=== PATIENT | female | born 1935 | race Caucasian/White ===

== ENCOUNTER → 2017-08-25 | Outpatient (CLI) | payer MEDICARE, OTHER ==
[~2017-08-25] MED LIST: HYDMOR2 PO; RXHYDMOR2 PO
== END | disposition home or self-care (01) ==
LOC: PLD 11:50 → LAB SHORT 11:50
DX: D48.5 Neoplasm of uncertain behavior of skin (principal)
CPT/HCPCS: 88305

== ENCOUNTER 2022-01-13 09:42 | Inpatient (IN) | payer OTHER, MEDICARE ==
[~2022-01-13] VITALS: Ht 157.5 cm; Wt 51.5 kg
[~2022-01-13 09:42] MED LIST changes: +ASPI81CH PO; +Crestor40 MG PO; +ELIQUIS2.5 MG PO; +FAMO20 PO; +FUROSEMIDE20 MG PO; +Isosorbide Mono30 MG PO; +METO25 PO; +MULTI-VITAMIN1 EAC2 PO; +Norco 5-325 Ta1 EACH PO; +POTCHL20ER PO; +RANO500T PO; +Vitamin D2000 UNIT PO
[2022-01-13 10:11] LABS: BASOPHILS ABSOLUTE AUTO 0.02 K/mm3 (0.00-0.23); BASOPHILS PERCENT AUTO 0 % (0-2); EOSINOPHILS ABSOLUTE AUTO 0.18 K/mm3 (0.00-0.68); EOSINOPHILS PERCENT AUTO 2 % (0-6); Hematocrit 37.2 % (33.0-51.0); IMMATURE GRAN ABSOLUTE AUTO 0.03 K/mm3 (0.00-0.10); IMMATURE GRAN PERCENT AUTO 0 % (0-1); LYMPHOCYTES ABSOLUTE AUTO 1.12 K/mm3 (0.84-5.20); LYMPHOCYTES PERCENT AUTO 12 % (21-46); MONOCYTES ABSOLUTE AUTO 0.75 K/mm3 (0.16-1.47); MONOCYTES PERCENT AUTO 8 % (4-13); Mean Corpuscular HGB 30.7 pg (26.0-34.0); Mean Corpuscular HGB Conc 32.3 g/dL (31.5-36.5); Mean Corpuscular Volume 95 fL (80-100); NEUTROPHILS ABSOLUTE AUTO 7.45 K/mm3 (1.96-9.15); NEUTROPHILS PERCENT AUTO 78 % (41-73); Platelet Count 182 K/mm3 (150-400); RDW Coefficient Variation 13.9 % (11.7-14.2); RDW Standard Deviation 48.9 fL (35.1-46.3); Red Blood Cell Count 3.91 M/mm3 (3.80-5.20); White Blood Cell Count 9.55 K/mm3 (4.00-11.30)
[2022-01-13 10:28] LABS: Alanine Aminotransfer (ALT/SGP 18 U/L (12-78); Albumin, Blood 3.3 g/dL (3.4-5.0); Alk Phos 54 U/L (50-136); Anion Gap 3 mmol/L (6-16); Aspartate Aminotrans (AST/SGOT 33 U/L (12-37); Bilirubin, Total 0.3 mg/dL (0.1-1.0); Blood Urea Nitrogen 15 mg/dL (8-24); Bun/Creatinine Ratio 15.9 (12.0-20.0); CO2, Blood 30 mmol/L (21-32); Calcium, Blood 9.4 mg/dL (8.5-10.1); Chloride, Blood 106 mmol/L (98-108); Creatinine, Blood 0.94 mg/dL (0.40-1.00); Ethanol (Alcohol), Blood, Med <3 mg/dL; Globulin, Blood 3.4 g/dL (2.2-4.0); Glomerular Filtration Rate 59 (60-); Glucose, Blood 102 mg/dL (70-99); Potassium, Blood 4.7 mmol/L (3.5-5.5); Sodium, Blood 139 mmol/L (136-145); Total Protein, Blood 6.7 g/dL (6.4-8.2)
[2022-01-13 12:10] LABS: Source, Urine Straight Cath
[2022-01-13 12:13] LABS: Appearance, Urine Clear (Clear); Bilirubin, Urine Neg (Neg); Blood, Urine 2+ (Neg); Color, Urine Yellow (P-Yellow); Glucose Qualitative, Urine Neg (Neg); Ketones, Urine Neg (Neg); Leukocyte Esterase, Urine Neg (Neg); Nitrite, Urine Neg (Neg); Protein, Urine 2+ (Neg); Specific Gravity, Urine 1.015 (1.003-1.022); Urobilinogen, Urine NORM (Normal); pH, Urine 6.5 (5.0-8.0)
[2022-01-13 12:31] LABS: U Amphetamine Screen Not Detected; U Barbituate Screen Not Detected; U Benzodiazapine Screen Not Detected; U Buprenorphine Screen Not Detected; U Cannabinoids Screen Not Detected; U Cocaine Screen Not Detected; U Methadone Screen Not Detected; U Methamphetamine Screen Not Detected; U Opiates Screen DETECTED; U Oxycodone Screen Not Detected; U Phencyclidine Screen Not Detected; U Propoxyphene Screen Not Detected
[2022-01-13 12:36] LABS: Amorphous Light (0-Heavy); Red Blood Cells, Urine 0-2 /hpf (0-2); White Blood Cells, Urine 0-2 /hpf (0-5)
[2022-01-13 12:39] LABS: Bacteria Few /hpf; Granular Casts 0-2 /lpf (0); Squamous Epithelial Cells Not Seen /hpf (Few)
[2022-01-13] MEDS ORDERED: MECL25 (14:20)
[2022-01-13] MEDS ORDERED: MELATONIN5 M1 PO (14:20)
[2022-01-13] MEDS ORDERED: KETO.5OPSO BOTHEYES (14:20)
[2022-01-13] MEDS ORDERED: NITR.4SL SL (14:21)
[2022-01-13] MEDS ORDERED: POLYTRIM EYE DR10 M1 BOTHEYES (14:22)
[2022-01-13] MEDS ORDERED: POTA10T PO (14:22)
--- NOTE | 2022-01-14 04:22 | NUR ---
SHIFT SUMMARY NEW ADMIT THIS SHIFT WITH R KNEE FX + R RIB FXS. R KNEE IN IMMOBILIZER AND ELEVATED ON PILLOWS. PAIN MANAGED WITH 0.5MG IV DILAUDID AND 1 PAIN PILL. I/S AT BEDSIDE. CHANGING ATTENDS PRN. ON 2L VIA NC TO MAINTAIN SATS >90% WHILE ASLEEP. CONT BIOX IN PLACE. PLAN FOR PT/OT EVALS TODAY AND TO CONT PAIN MANAGMENT. CALL LIGHT WITHIN REACH.
[2022-01-14 05:57] LABS: Bun/Creatinine Ratio 19.3 (12.0-20.0); Creatinine, Blood 0.93 mg/dL (0.40-1.00); Potassium, Blood 4.3 mmol/L (3.5-5.5)
[2022-01-14 12:15] LABS: Magnesium, Blood 2.3 mg/dL (1.6-2.4); Thyroid Stimulating Hormone 0.647 uIU/mL (0.360-4.800)
--- NOTE | 2022-01-14 18:15 | NUR ---
SHIFT SUMMARY PATIENT ALERT AND ORIENTED. R LG IN IMMOBILIZER. NONSURGICAL. PLAN FOR PT/OT, PAIN MANAGEMENT, DISCHARGE PLANNING HOME VS SNF. HR ALTERNATES NSR AND AFIB, ALSO SEVERAL 3 SECOND PAUSES WITH A COUPLE BEATS OF KAROLINE BEFORE BACK TO AFIB RATE. EKG AND ECHO COMPLETED. PATIENT SWITCHED TO DNR. ABLE TO STAND AT EDGE OF BED WITH TTWB TO R LEG. MEDICATED FOR PAIN PER EMAR. INCONTINENT IN ATTENDS. DAUGHTER ATTENTIVE IN AFTERNOON. DAUGHTER WILL BE PRESENT FOR THERAPY SESSION AT 1030 TOMORROW 01/15/22.
--- NOTE | 2022-01-14 18:22 | NUR ---
SHIFT SUMMARY PATIENT NEW ADMIT TO UNIT POST OP R TKA WITH DR COLÓN. ALERT AND ORIENTED. GENERAL ANESTHESIA. PAIN CONTROLLED WITH NON-NARCOTIC MEDS, SEE EMAR. R KNEE AQUACEL C/D/I. ABLE TO AMBULATE TO RESTROOM. VOIDING WELL. TOLERATING DIET AND LIQUIDS. SALINE LOCKED. SPOUSE ATTENTIVE IN ROOM. WORKED WITH PHYSICAL THERAPY. PLAN TO DISCHARGE HOME TOMORROW MORNING AFTER CLEARING PHYSICAL THERAPY.
[2022-01-15 05:08] LABS: Hematocrit 34.1 % (33.0-51.0); Hemoglobin 10.8 g/dL (11.5-16.0)
--- NOTE | 2022-01-15 06:01 | NUR ---
SHIFT SUMMARY NO ACUTE CHANGES. PT HAS RESTED WELL T/O NIGHT. 1 NORCO FOR PAIN PRN. R KNEE REMAINS IN IMMOBILIZER ELEVATED ON PILLOWS. ATTENDS CHANGED PRN. USES CALL LIGHT APPROPRIATELY.
--- NOTE | 2022-01-15 08:00 | NUR ---
TELE NOTIFIED THIS RN THAT PATIENT WAS IN [facility]. THIS RN NOTIFIED DR DAVENPORT VIA TELEPHONE, MESSAGE LEFT.
[2022-01-15] MEDS ORDERED: TRAZ150T57 PO (10:43)
[2022-01-15] MEDS ORDERED: HYDACE10B PO (15:51)
[2022-01-15] MEDS ORDERED: MIRALAX17 GM PO (15:51)
[2022-01-15] MEDS ORDERED: SENN187 PO (15:51)
[2022-01-15 16:45] LABS: SARS-Cov-2 (COVID-19) PCR, MMC NEGATIVE (NEGATIVE)
--- NOTE | 2022-01-15 17:02 | NUR ---
DISCHARGE PATIENT HAS BEEN WORKING WITH THERAPY AND DOING WELL, 1-2 P ASSIST. KNEE IMMOBOLIZER TO R KNEE. PAIN MANAGED PER EMAR WITH NORCO. EATING, DRINKING, & VOIDING WELL. VSS, ON 2L O2 TO MAINTAIN HUA >92%. REPORT CALLED TO [facility]. ESCORTED OUT VIA W/C W/ TRANSPORTER.
== END 2022-01-15 16:59 | DRG 964 ==
LOC: ER 09:42 → SURS 17:47 → ER 17:52 → SURS 17:52
PROVIDERS: Internal Medicine; Nurse Practitioner Acute Care; Student in an Organized Health Care Education/Training Program; ADMIT Surgery
DX: S72.431A Displaced fracture of medial condyle of right femur, initial encounter for closed fracture (principal); S27.1XXA Traumatic hemothorax, initial encounter; S22.41XA Multiple fractures of ribs, right side, initial encounter for closed fracture; Z20.822 Contact with and (suspected) exposure to COVID-19; G89.29 Other chronic pain; M81.0 Age-related osteoporosis without current pathological fracture; Z66 Do not resuscitate; J44.9 Chronic obstructive pulmonary disease, unspecified; I48.0 Paroxysmal atrial fibrillation; E78.5 Hyperlipidemia, unspecified; F03.90 Unspecified dementia, unspecified severity, without behavioral disturbance, psychotic disturbance, mood disturbance, and anxiety; I25.10 Atherosclerotic heart disease of native coronary artery without angina pectoris; W01.190A Fall on same level from slipping, tripping and stumbling with subsequent striking against furniture, initial encounter; Z79.891 Long term (current) use of opiate analgesic; Z79.01 Long term (current) use of anticoagulants; Z79.82 Long term (current) use of aspirin; Z95.1 Presence of aortocoronary bypass graft; Z96.641 Presence of right artificial hip joint; Z86.73 Personal history of transient ischemic attack (TIA), and cerebral infarction without residual deficits; Y92.009 Unspecified place in unspecified non-institutional (private) residence as the place of occurrence of the external cause
CPT/HCPCS: 29505; 36415; 70450; 71260; 72125; 73070; 73552; 73562-RT; 73700; 74177; 80048; 80053; 81001; 83735; 83880; 84443; 84484; 85014; 85018; 85025; 93005; 93010; 93306; 94762; 96374-59; 96375-59; 96376-59; 97110; 97162; 97166; 97530; 99285-25; A9270; G0480; J1170; J2270; J3010; Q9967; U0004